=== PATIENT | male | born 1935 | race Hispanic/Latino ===

== ENCOUNTER 2021-03-28 18:03 | Emergency (ER) | payer MEDICARE ==
[~2021-03-28] VITALS: Ht 172.7 cm; Wt 78.0 kg
[2021-03-28] MEDS ORDERED: ZITHROMAX250 MG PO ×3 (19:56→20:18)
[2021-03-28] MEDS ORDERED: TESSALON PERLE100 MG PO ×3 (19:56→20:18)
[2021-03-28 20:21] VITALS: BP 200/114
== END 2021-03-28 20:21 | disposition home or self-care (01) ==
LOC: FSED 18:10
DX: R05 Cough (principal); J18.9 Pneumonia, unspecified organism; Z20.822 Contact with and (suspected) exposure to COVID-19; I10 Essential (primary) hypertension; E78.5 Hyperlipidemia, unspecified; M10.9 Gout, unspecified; G47.30 Sleep apnea, unspecified; Z95.1 Presence of aortocoronary bypass graft
CPT/HCPCS: 71045; 83518; 87400; 99283; U0002

== ENCOUNTER 2021-05-28 21:29 | Inpatient (IN) | payer MEDICARE ==
[~2021-05-28] VITALS: Ht 172.7 cm; Wt 83.9 kg
[~2021-05-28 21:29] MED LIST: TESSALON PERLE100 MG PO; ZITHROMAX250 MG PO
[2021-05-28] MEDS ORDERED: FUROSEMIDE INJ 10 MG/ML 4 ML VIAL IV ONE (23:30)
[2021-05-28] MEDS ORDERED: FUROSEMIDE INJ 10 MG/ML 4 ML VIAL ONE (23:37)
[2021-05-29] VITALS (9 sets, daily range): BP systolic 127–161; BP diastolic 73–84
[2021-05-29] MEDS ORDERED: AMLODIPINE BESYL5 MG PO (03:02)
[2021-05-29] MEDS ORDERED: LOSARTAN POTASS25 MG PO (03:03)
[2021-05-29] MEDS ORDERED: ALLOPURINOL300 MG PO (03:04)
[2021-05-29] MEDS ORDERED: SIMVASTATIN40 MG PO (03:05)
[2021-05-29] MEDS ORDERED: TERAZOSIN HCL1 MG PO (03:06)
[2021-05-29] MEDS ORDERED: ISOSORBIDE DINI20 MG PO (03:08)
[2021-05-29] MEDS ORDERED: MELATONIN3 MG PO (03:09)
[2021-05-29] MEDS ORDERED: SAW PALMETTO450 MG PO (03:11)
[2021-05-29] MEDS ORDERED: MIRALAX17 GM PO (03:13)
[2021-05-29 06:54] LABS: CREATINE KINASE MB 2.3 ng/mL (0-5.0)
[2021-05-29] MEDS ORDERED: FUROSEMIDE INJ 10 MG/ML 4 ML VIAL IV SCH (09:00)
[2021-05-29] MEDS ORDERED: ACETAMINOPHEN 325 MG TAB PO PRN (10:15)
[2021-05-29 10:29] LABS: BASOPHILS % 0.4 % (0.0-1.0); EOSINOPHILS # (AUTO) 0.1 (0.0-0.4); EOSINOPHILS % 2.5 % (0.0-6.0); HEMATOCRIT 30.5 % (38.2-49.6); HEMOGLOBIN 9.6 g/dL (14.0-18.0); LYMPHOCYTES # (AUTO) 1.4 (1.0-3.2); LYMPHOCYTES % 26.3 % (18.0-39.1); MEAN CORPUSCULAR HEMOGLOBIN 29.6 pg (28-32); MEAN CORPUSCULAR HGB CONC 31.5 g/dL (31-35); MEAN CORPUSCULAR VOLUME 94.1 fL (81-99); MONOCYTES # (AUTO) 0.6 (0.2-0.8); MONOCYTES % 12.3 % (4.4-11.3); NEUTROPHILS % 58.1 % (38.7-80.0); PLATELET COUNT 78 x10e3/uL (140-360); RED BLOOD COUNT 3.24 x10e6/uL (4.3-5.7)
[2021-05-29 10:44] LABS: ANION GAP 15.9 mmol/L (8-16); CALCIUM 8.7 mg/dL (8.4-10.2); CREATININE, SERUM 5.34 mg/dL (0.72-1.25); POTASSIUM 4.9 mmol/L (3.5-5.1)
[2021-05-29 10:58] LABS: % IRON SATURATION 11 % (15-50); IRON 24 ug/dL (65-175); TOTAL IRON BINDING CAPACITY 221 ug/dL (261-478); TRANSFERRIN 158 mg/dL (174-364)
[2021-05-29] MEDS: CEFTRIAXONE 1 GM in SODIUM CHLORIDE 0.9% 50ML 50 ML IV SCH (12:33)
[2021-05-29] MEDS ORDERED: SODIUM CHLORIDE 0.9% 50ML 50 ML ONE (13:12)
[2021-05-29] MEDS ORDERED: POLYETHYLENE GLYCOL 3350 17 GM PACK PO PRN (13:30)
[2021-05-29] MEDS: IRON SUCROSE 100 MG in SODIUM CHLORIDE 0.9% 100 ML 100 ML IV SCH (15:51)
[2021-05-29 16:14] LABS: CREATINE KINASE MB 12.7 ng/mL (0-5.0)
[2021-05-29] MEDS ORDERED: BENZONATATE 100 MG CAP PO PRN (16:30)
[2021-05-29] MEDS: TERAZOSIN HCL 1 MG CAP PO SCH (20:15)
[2021-05-29] MEDS: SIMVASTATIN 40 MG TAB PO SCH (20:15)
[2021-05-30] VITALS (8 sets, daily range): BP systolic 148–174; BP diastolic 75–107
[2021-05-30 05:01] LABS: BASOPHILS % 0.3 % (0.0-1.0); EOSINOPHILS % 0.1 % (0.0-6.0); HEMATOCRIT 31.7 % (38.2-49.6); HEMOGLOBIN 10.3 g/dL (14.0-18.0); LYMPHOCYTES # (AUTO) 1.1 (1.0-3.2); LYMPHOCYTES % 16.1 % (18.0-39.1); MEAN CORPUSCULAR HEMOGLOBIN 29.9 pg (28-32); MEAN CORPUSCULAR HGB CONC 32.5 g/dL (31-35); MEAN CORPUSCULAR VOLUME 91.9 fL (81-99); MONOCYTES # (AUTO) 0.5 (0.2-0.8); MONOCYTES % 7.5 % (4.4-11.3); NEUTROPHILS # (AUTO) 5.2 (2.1-6.9); NEUTROPHILS % 75.6 % (38.7-80.0); PLATELET COUNT 82 x10e3/uL (140-360); RED BLOOD COUNT 3.45 x10e6/uL (4.3-5.7); RED CELL DISTRIBUTION WIDTH 14.9 % (11.7-14.4)
[2021-05-30 05:32] LABS: ALBUMIN/GLOBULIN RATIO 1.5 (0.8-2.0); ANION GAP 19.5 mmol/L (8-16); CALCIUM 8.6 mg/dL (8.4-10.2); CREATININE, SERUM 5.41 mg/dL (0.72-1.25); POTASSIUM 4.5 mmol/L (3.5-5.1)
[2021-05-30 05:50] LABS: CHOL/HDL RATIO 3.6 (3.9-4.7)
[2021-05-30 06:12] LABS: THYROID STIMULATING HORMONE 2.843 uIU/mL (0.350-4.940)
[2021-05-30] MEDS: BACITRACIN ZINC 15 GM OINT TOP SCH (09:00)
[2021-05-30] MEDS ORDERED: FUROSEMIDE INJ 10 MG/ML 4 ML VIAL IV ONE (10:30)
[2021-05-30] MEDS: CEFTRIAXONE 1 GM in SODIUM CHLORIDE 0.9% 50ML 50 ML IV SCH (10:48)
[2021-05-30] MEDS: ISOSORBIDE DINITRATE 20 MG TAB PO SCH (10:48)
[2021-05-30] MEDS: CARVEDILOL 3.125 MG TAB PO SCH ×2 (10:48→17:00)
[2021-05-30] MEDS ORDERED: BUMETANIDE INJ 0.25MG/ML 4ML VIAL IV SCH ×2 (11:00→21:00)
[2021-05-30] MEDS: IRON SUCROSE 100 MG in SODIUM CHLORIDE 0.9% 100 ML 100 ML IV SCH (15:00)
[2021-05-30 16:45] LABS: CREATININE,URINE RANDOM 56.92 mg/dL (63-166)
[2021-05-30 16:47] LABS: CREATININE,URINE RANDOM 54.89 mg/dL (63-166); TOTAL PROTEIN, URINE 22.2 mg/dL (1-14)
[2021-05-30] MEDS: SIMVASTATIN 40 MG TAB PO SCH (21:20)
[2021-05-30] MEDS: BUMETANIDE 10 MG in SODIUM CHLORIDE 0.9% 100 ML 60 ML IV SCH (21:20)
[2021-05-30] MEDS: TERAZOSIN HCL 1 MG CAP PO SCH (21:20)
[2021-05-31 00:15] VITALS: BP 148/94
[2021-05-31 00:29] VITALS: BP 146/77
[2021-05-31 04:05] VITALS: BP 146/91
[2021-05-31 05:43] LABS: BASOPHILS % 0.1 % (0.0-1.0); HEMATOCRIT 32.2 % (38.2-49.6); HEMOGLOBIN 10.4 g/dL (14.0-18.0); LYMPHOCYTES # (AUTO) 1.2 (1.0-3.2); LYMPHOCYTES % 15.6 % (18.0-39.1); MEAN CORPUSCULAR HEMOGLOBIN 29.9 pg (28-32); MEAN CORPUSCULAR HGB CONC 32.3 g/dL (31-35); MEAN CORPUSCULAR VOLUME 92.5 fL (81-99); MONOCYTES # (AUTO) 0.6 (0.2-0.8); MONOCYTES % 7.6 % (4.4-11.3); NEUTROPHILS # (AUTO) 5.7 (2.1-6.9); PLATELET COUNT 96 x10e3/uL (140-360); RED BLOOD COUNT 3.48 x10e6/uL (4.3-5.7); RED CELL DISTRIBUTION WIDTH 15.2 % (11.7-14.4)
[2021-05-31 06:32] LABS: ALBUMIN 3.7 g/dL (3.5-5.0); ALBUMIN/GLOBULIN RATIO 1.3 (0.8-2.0); ANION GAP 19.4 mmol/L (8-16); CALCIUM 8.7 mg/dL (8.4-10.2); CREATININE, SERUM 5.52 mg/dL (0.72-1.25); POTASSIUM 4.4 mmol/L (3.5-5.1)
[2021-05-31] MEDS: BUMETANIDE 10 MG in SODIUM CHLORIDE 0.9% 100 ML 60 ML IV SCH ×2 (06:32→15:45)
[2021-05-31 07:39] VITALS: BP 139/79
[2021-05-31 09:00] VITALS: BP 139/79
[2021-05-31] MEDS: BACITRACIN ZINC 15 GM OINT TOP SCH ×2 (09:00→09:41)
[2021-05-31] MEDS: ISOSORBIDE DINITRATE 20 MG TAB PO SCH (09:42)
[2021-05-31] MEDS: CARVEDILOL 3.125 MG TAB PO SCH ×2 (09:42→16:52)
[2021-05-31] MEDS: CEFTRIAXONE 1 GM in SODIUM CHLORIDE 0.9% 50ML 50 ML IV SCH (10:30)
[2021-05-31] MEDS ORDERED: HEPARIN SOD (PORCINE) 1000 UNIT/ML SDV ONE ×2 (10:46→21:26)
[2021-05-31] MEDS ORDERED: LIDOCAINE HCL 1% LOCAL INJ 20 ML VIAL ONE (10:54)
[2021-05-31] MEDS ORDERED: SODIUM CHLORIDE 0.9% 1000ML 1,000 ML ONE (18:40)
[2021-05-31 20:00] VITALS: BP 141/91
[2021-05-31] MEDS: SIMVASTATIN 40 MG TAB PO SCH (21:30)
[2021-05-31] MEDS: TERAZOSIN HCL 1 MG CAP PO SCH (21:30)
[2021-06-01] VITALS (9 sets, daily range): BP systolic 117–163; BP diastolic 71–86
[2021-06-01 06:01] LABS: BASOPHILS % 0.4 % (0.0-1.0); EOSINOPHILS # (AUTO) 0.1 (0.0-0.4); EOSINOPHILS % 0.9 % (0.0-6.0); HEMATOCRIT 33.3 % (38.2-49.6); HEMOGLOBIN 10.4 g/dL (14.0-18.0); LYMPHOCYTES # (AUTO) 1.9 (1.0-3.2); LYMPHOCYTES % 25.3 % (18.0-39.1); MEAN CORPUSCULAR HEMOGLOBIN 29.6 pg (28-32); MEAN CORPUSCULAR HGB CONC 31.2 g/dL (31-35); MEAN CORPUSCULAR VOLUME 94.9 fL (81-99); MONOCYTES # (AUTO) 0.7 (0.2-0.8); MONOCYTES % 9.6 % (4.4-11.3); NEUTROPHILS # (AUTO) 4.7 (2.1-6.9); PLATELET COUNT 91 x10e3/uL (140-360); RED BLOOD COUNT 3.51 x10e6/uL (4.3-5.7); RED CELL DISTRIBUTION WIDTH 14.9 % (11.7-14.4)
[2021-06-01 06:12] LABS: ANION GAP 18.8 mmol/L (8-16); CALCIUM 8.7 mg/dL (8.4-10.2); CREATININE, SERUM 4.37 mg/dL (0.72-1.25); POTASSIUM 3.8 mmol/L (3.5-5.1)
[2021-06-01] MEDS: BUMETANIDE 10 MG in SODIUM CHLORIDE 0.9% 100 ML 60 ML IV SCH ×3 (06:52→20:00)
[2021-06-01 08:24] LABS: BAND NEUTROPHILS % (MANUAL) 2 %; LYMPHOCYTES % (MANUAL) 23 % (19-48); MONOCYTES % (MANUAL) 7 % (3.4-9.0); NEUTROPHILS % (MANUAL) 68 % (40-74)
[2021-06-01] MEDS: ISOSORBIDE DINITRATE 20 MG TAB PO SCH (09:00)
[2021-06-01] MEDS: CARVEDILOL 3.125 MG TAB PO SCH ×2 (09:00→17:56)
[2021-06-01] MEDS: BACITRACIN ZINC 15 GM OINT TOP SCH (09:00)
[2021-06-01] MEDS: CEFTRIAXONE 1 GM in SODIUM CHLORIDE 0.9% 50ML 50 ML IV SCH (10:30)
[2021-06-01] MEDS ORDERED: HEPARIN SOD (PORCINE) 1000 UNIT/ML SDV ONE (14:18)
[2021-06-01] MEDS ORDERED: SODIUM CHLORIDE 0.9% 1000ML 1,000 ML ONE (14:19)
[2021-06-01] MEDS: TERAZOSIN HCL 1 MG CAP PO SCH (21:34)
[2021-06-01] MEDS: SIMVASTATIN 40 MG TAB PO SCH (21:34)
[2021-06-02] VITALS (7 sets, daily range): BP systolic 116–164; BP diastolic 69–92
[2021-06-02] MEDS: BUMETANIDE 10 MG in SODIUM CHLORIDE 0.9% 100 ML 60 ML IV SCH ×2 (06:25→16:59)
[2021-06-02 07:06] LABS: BASOPHILS % 0.4 % (0.0-1.0); EOSINOPHILS # (AUTO) 0.1 (0.0-0.4); EOSINOPHILS % 0.7 % (0.0-6.0); HEMATOCRIT 34.7 % (38.2-49.6); HEMOGLOBIN 11.1 g/dL (14.0-18.0); LYMPHOCYTES # (AUTO) 2.1 (1.0-3.2); LYMPHOCYTES % 26.4 % (18.0-39.1); MEAN CORPUSCULAR HEMOGLOBIN 29.7 pg (28-32); MEAN CORPUSCULAR VOLUME 92.8 fL (81-99); MONOCYTES # (AUTO) 0.8 (0.2-0.8); MONOCYTES % 10.2 % (4.4-11.3); NEUTROPHILS % 61.4 % (38.7-80.0); PLATELET COUNT 94 x10e3/uL (140-360); RED BLOOD COUNT 3.74 x10e6/uL (4.3-5.7); RED CELL DISTRIBUTION WIDTH 14.8 % (11.7-14.4)
[2021-06-02 07:23] LABS: ANION GAP 16.8 mmol/L (8-16); CALCIUM 8.8 mg/dL (8.4-10.2); CREATININE, SERUM 3.86 mg/dL (0.72-1.25); MAGNESIUM 1.9 MG/DL (1.3-2.1); PHOSPHORUS 5.1 MG/DL (2.3-4.7); POTASSIUM 3.8 mmol/L (3.5-5.1)
[2021-06-02] MEDS: CARVEDILOL 3.125 MG TAB PO SCH ×2 (08:34→16:59)
[2021-06-02] MEDS: BACITRACIN ZINC 15 GM OINT TOP SCH (08:35)
[2021-06-02] MEDS: ISOSORBIDE DINITRATE 20 MG TAB PO SCH (08:35)
[2021-06-02] MEDS: CEFTRIAXONE 1 GM in SODIUM CHLORIDE 0.9% 50ML 50 ML IV SCH (09:26)
[2021-06-02] MEDS ORDERED: CLOPIDOGREL BISULFATE 75 MG TAB PO NR ×2 (11:00→16:45)
[2021-06-02] MEDS: SIMVASTATIN 40 MG TAB PO SCH (20:28)
[2021-06-02] MEDS: TERAZOSIN HCL 1 MG CAP PO SCH (20:28)
[2021-06-03] VITALS (12 sets, daily range): BP systolic 118–171; BP diastolic 64–93
[2021-06-03 05:02] LABS: BASOPHILS % 0.2 % (0.0-1.0); EOSINOPHILS # (AUTO) 0.1 (0.0-0.4); EOSINOPHILS % 1.5 % (0.0-6.0); HEMATOCRIT 33.7 % (38.2-49.6); HEMOGLOBIN 10.7 g/dL (14.0-18.0); LYMPHOCYTES # (AUTO) 0.9 (1.0-3.2); MEAN CORPUSCULAR HEMOGLOBIN 29.7 pg (28-32); MEAN CORPUSCULAR HGB CONC 31.8 g/dL (31-35); MEAN CORPUSCULAR VOLUME 93.6 fL (81-99); MONOCYTES # (AUTO) 0.8 (0.2-0.8); MONOCYTES % 11.4 % (4.4-11.3); NEUTROPHILS # (AUTO) 4.8 (2.1-6.9); NEUTROPHILS % 72.3 % (38.7-80.0); PLATELET COUNT 93 x10e3/uL (140-360); RED CELL DISTRIBUTION WIDTH 14.6 % (11.7-14.4)
[2021-06-03 05:09] LABS: INR 1.13; PROTHROMBIN TIME 14.7 seconds (11.9-14.5)
[2021-06-03 05:27] LABS: ALBUMIN 3.6 g/dL (3.5-5.0); ALBUMIN/GLOBULIN RATIO 1.2 (0.8-2.0); ANION GAP 17.6 mmol/L (8-16); CALCIUM 8.6 mg/dL (8.4-10.2); CHOL/HDL RATIO 4.4 (3.9-4.7); CREATININE, SERUM 4.62 mg/dL (0.72-1.25); POTASSIUM 3.6 mmol/L (3.5-5.1)
[2021-06-03] MEDS: BUMETANIDE 10 MG in SODIUM CHLORIDE 0.9% 100 ML 60 ML IV SCH ×3 (05:29→23:45)
[2021-06-03 05:46] LABS: THYROID STIMULATING HORMONE 2.054 uIU/mL (0.350-4.940)
[2021-06-03] MEDS: ASPIRIN 81 MG ENTERIC COATED PO SCH (08:51)
[2021-06-03] MEDS: CARVEDILOL 3.125 MG TAB PO SCH ×2 (08:51→16:03)
[2021-06-03] MEDS: ISOSORBIDE MONONITRATE 30 MG TAB CR PO SCH (08:51)
[2021-06-03] MEDS: BACITRACIN ZINC 15 GM OINT TOP SCH (10:29)
[2021-06-03] MEDS: CEFTRIAXONE 1 GM in SODIUM CHLORIDE 0.9% 50ML 50 ML IV SCH (10:29)
[2021-06-03] MEDS ORDERED: CLOPIDOGREL BISULFATE 75 MG TAB PO ONE (11:30)
[2021-06-03] MEDS ORDERED: MIDAZOLAM HCL 2 MG/2 ML VIAL ONE (17:19)
[2021-06-03] MEDS ORDERED: FENTANYL CITRATE/PF 100MCG/2 ML INJ ONE (17:19)
[2021-06-03] MEDS ORDERED: SODIUM CHLORIDE 0.9% 1000ML 2,000 ML ONE (17:20)
[2021-06-03] MEDS ORDERED: CLONIDINE HCL 0.1 MG TAB PO PRN (18:45)
[2021-06-03] MEDS: SIMVASTATIN 40 MG TAB PO SCH (21:51)
[2021-06-03] MEDS: TERAZOSIN HCL 1 MG CAP PO SCH (22:53)
[2021-06-04] VITALS (11 sets, daily range): BP systolic 101–156; BP diastolic 59–77
[2021-06-04 05:54] LABS: BASOPHILS % 0.5 % (0.0-1.0); EOSINOPHILS % 0.5 % (0.0-6.0); HEMATOCRIT 34.4 % (38.2-49.6); HEMOGLOBIN 11.2 g/dL (14.0-18.0); LYMPHOCYTES # (AUTO) 0.9 (1.0-3.2); MEAN CORPUSCULAR HEMOGLOBIN 30.3 pg (28-32); MEAN CORPUSCULAR HGB CONC 32.6 g/dL (31-35); NEUTROPHILS # (AUTO) 6.1 (2.1-6.9); NEUTROPHILS % 75.3 % (38.7-80.0); PLATELET COUNT 94 x10e3/uL (140-360); RED CELL DISTRIBUTION WIDTH 14.7 % (11.7-14.4)
[2021-06-04 06:11] LABS: ANION GAP 20.7 mmol/L (8-16); CALCIUM 8.6 mg/dL (8.4-10.2); CREATININE, SERUM 5.26 mg/dL (0.72-1.25); POTASSIUM 3.7 mmol/L (3.5-5.1)
[2021-06-04] MEDS: ASPIRIN 81 MG ENTERIC COATED PO SCH (09:18)
[2021-06-04] MEDS: CARVEDILOL 3.125 MG TAB PO SCH ×2 (09:23→19:48)
[2021-06-04] MEDS: CLOPIDOGREL BISULFATE 75 MG TAB PO SCH (09:24)
[2021-06-04] MEDS: ISOSORBIDE MONONITRATE 30 MG TAB CR PO SCH (09:24)
[2021-06-04] MEDS: BACITRACIN ZINC 15 GM OINT TOP SCH (09:33)
[2021-06-04] MEDS: ONDANSETRON HCL INJ 2MG/ML 2ML 2 MG/ML VIAL IV PRN (16:30)
[2021-06-04] MEDS ORDERED: ENOXAPARIN 30 MG/0.3 ML SYR SC SCH (17:00)
[2021-06-04] MEDS: CEFTRIAXONE 1 GM in SODIUM CHLORIDE 0.9% 50ML 50 ML IV SCH (18:04)
[2021-06-04] MEDS: SIMVASTATIN 40 MG TAB PO SCH (21:52)
[2021-06-04] MEDS: TERAZOSIN HCL 1 MG CAP PO SCH (23:17)
[2021-06-04] MEDS: MELATONIN 5 MG TABLET PO PRN (23:45)
[2021-06-05] VITALS (10 sets, daily range): BP systolic 110–166; BP diastolic 61–81
[2021-06-05 05:44] LABS: BASOPHILS # (AUTO) 0.1 (0.0-0.1); BASOPHILS % 0.5 % (0.0-1.0); EOSINOPHILS # (AUTO) 0.1 (0.0-0.4); EOSINOPHILS % 0.6 % (0.0-6.0); HEMATOCRIT 35.6 % (38.2-49.6); HEMOGLOBIN 11.7 g/dL (14.0-18.0); LYMPHOCYTES # (AUTO) 1.4 (1.0-3.2); LYMPHOCYTES % 13.9 % (18.0-39.1); MEAN CORPUSCULAR HEMOGLOBIN 29.8 pg (28-32); MEAN CORPUSCULAR HGB CONC 32.9 g/dL (31-35); MEAN CORPUSCULAR VOLUME 90.6 fL (81-99); MONOCYTES # (AUTO) 1.2 (0.2-0.8); MONOCYTES % 11.7 % (4.4-11.3); NEUTROPHILS # (AUTO) 7.4 (2.1-6.9); NEUTROPHILS % 72.2 % (38.7-80.0); PLATELET COUNT 101 x10e3/uL (140-360); RED BLOOD COUNT 3.93 x10e6/uL (4.3-5.7); RED CELL DISTRIBUTION WIDTH 14.8 % (11.7-14.4)
[2021-06-05 06:09] LABS: CREATININE, SERUM 5.03 mg/dL (0.72-1.25)
[2021-06-05] MEDS ORDERED: LIDOCAINE HCL 1% LOCAL INJ 20 ML VIAL ONE (08:19)
[2021-06-05] MEDS ORDERED: SODIUM CHLORIDE 0.9% 250ML 250 ML ONE (08:19)
[2021-06-05] MEDS ORDERED: MIDAZOLAM HCL 2 MG/2 ML VIAL ONE (08:27)
[2021-06-05] MEDS ORDERED: HEPARIN SOD (PORCINE) 1000 UNIT/ML SDV ONE (08:28)
[2021-06-05] MEDS ORDERED: FENTANYL CITRATE/PF 100MCG/2 ML INJ ONE (08:28)
[2021-06-05] MEDS ORDERED: LIDOCAINE 2% /EPINEPHRINE 20 ML SDV INJ ONE (08:28)
[2021-06-05] MEDS: ASPIRIN 81 MG ENTERIC COATED PO SCH (09:52)
[2021-06-05] MEDS: CARVEDILOL 3.125 MG TAB PO SCH ×2 (09:53→16:45)
[2021-06-05] MEDS: ISOSORBIDE MONONITRATE 30 MG TAB CR PO SCH (09:53)
[2021-06-05] MEDS: CLOPIDOGREL BISULFATE 75 MG TAB PO SCH (09:53)
[2021-06-05] MEDS: BACITRACIN ZINC 15 GM OINT TOP SCH (09:53)
[2021-06-05] MEDS: CEFTRIAXONE 1 GM in SODIUM CHLORIDE 0.9% 50ML 50 ML IV SCH (16:35)
[2021-06-05] MEDS ORDERED: SODIUM CHLORIDE 0.9% 100 ML ONE (16:38)
[2021-06-05] MEDS: MELATONIN 5 MG TABLET PO PRN (20:16)
[2021-06-05] MEDS: TERAZOSIN HCL 1 MG CAP PO SCH (20:16)
[2021-06-05] MEDS: SIMVASTATIN 40 MG TAB PO SCH (20:16)
[2021-06-06] VITALS (8 sets, daily range): BP systolic 146–166; BP diastolic 79–89
[2021-06-06] MEDS: ISOSORBIDE MONONITRATE 30 MG TAB CR PO SCH (09:00)
[2021-06-06] MEDS: CARVEDILOL 3.125 MG TAB PO SCH ×2 (09:00→16:55)
[2021-06-06] MEDS ORDERED: SODIUM CHLORIDE 0.9% 1000ML 1,000 ML ONE (09:22)
[2021-06-06] MEDS: ASPIRIN 81 MG ENTERIC COATED PO SCH (09:43)
[2021-06-06] MEDS: CLOPIDOGREL BISULFATE 75 MG TAB PO SCH (09:43)
[2021-06-06] MEDS: LOSARTAN POTASSIUM 100 MG TAB PO SCH (10:15)
[2021-06-06] MEDS ORDERED: HEPARIN SOD (PORCINE) 1000 UNIT/ML SDV ONE (13:36)
[2021-06-06] MEDS: CEFTRIAXONE 1 GM in SODIUM CHLORIDE 0.9% 50ML 50 ML IV SCH (16:55)
[2021-06-06] MEDS: ENOXAPARIN 30 MG/0.3 ML SYR SC SCH (17:02)
[2021-06-06] MEDS: MELATONIN 5 MG TABLET PO PRN (20:13)
[2021-06-06] MEDS: SIMVASTATIN 40 MG TAB PO SCH (20:13)
[2021-06-06] MEDS: TERAZOSIN HCL 1 MG CAP PO SCH (20:13)
[2021-06-07] VITALS (9 sets, daily range): BP systolic 92–155; BP diastolic 57–85
[2021-06-07 05:02] LABS: HEMATOCRIT 39.1 % (38.2-49.6); HEMOGLOBIN 12.8 g/dL (14.0-18.0); MEAN CORPUSCULAR HEMOGLOBIN 29.8 pg (28-32); MEAN CORPUSCULAR HGB CONC 32.7 g/dL (31-35); MEAN CORPUSCULAR VOLUME 91.1 fL (81-99); PLATELET COUNT 117 x10e3/uL (140-360); RED BLOOD COUNT 4.29 x10e6/uL (4.3-5.7); RED CELL DISTRIBUTION WIDTH 14.8 % (11.7-14.4)
[2021-06-07 05:03] LABS: BASOPHILS # (AUTO) 0.1 (0.0-0.1); BASOPHILS % 0.7 % (0.0-1.0); EOSINOPHILS # (AUTO) 0.1 (0.0-0.4); EOSINOPHILS % 0.6 % (0.0-6.0); LYMPHOCYTES # (AUTO) 1.7 (1.0-3.2); LYMPHOCYTES % 14.8 % (18.0-39.1); MONOCYTES # (AUTO) 1.3 (0.2-0.8); MONOCYTES % 11.5 % (4.4-11.3); NEUTROPHILS # (AUTO) 8.1 (2.1-6.9); NEUTROPHILS % 71.2 % (38.7-80.0)
[2021-06-07 05:27] LABS: ALBUMIN 4.1 g/dL (3.5-5.0); ALBUMIN/GLOBULIN RATIO 1.1 (0.8-2.0); ANION GAP 21.7 mmol/L (8-16); CALCIUM 9.7 mg/dL (8.4-10.2); CREATININE, SERUM 5.54 mg/dL (0.72-1.25); POTASSIUM 4.7 mmol/L (3.5-5.1)
[2021-06-07] MEDS: ASPIRIN 81 MG ENTERIC COATED PO SCH (08:22)
[2021-06-07] MEDS: ISOSORBIDE MONONITRATE 30 MG TAB CR PO SCH (08:23)
[2021-06-07] MEDS: CARVEDILOL 3.125 MG TAB PO SCH ×2 (08:23→17:00)
[2021-06-07] MEDS: LOSARTAN POTASSIUM 100 MG TAB PO SCH (08:23)
[2021-06-07] MEDS: CLOPIDOGREL BISULFATE 75 MG TAB PO SCH (08:23)
[2021-06-07] MEDS ORDERED: LACTULOSE SYRUP 20 GM/30 ML UDC PO ONE (12:45)
[2021-06-07] MEDS: ONDANSETRON HCL INJ 2MG/ML 2ML 2 MG/ML VIAL IV PRN ×2 (15:30→21:28)
[2021-06-07] MEDS: CEFTRIAXONE 1 GM in SODIUM CHLORIDE 0.9% 50ML 50 ML IV SCH (17:10)
[2021-06-07] MEDS: ENOXAPARIN 30 MG/0.3 ML SYR SC SCH (17:13)
[2021-06-07] MEDS: MELATONIN 5 MG TABLET PO PRN (20:13)
[2021-06-07] MEDS: SIMVASTATIN 40 MG TAB PO SCH (20:13)
[2021-06-07] MEDS: TERAZOSIN HCL 1 MG CAP PO SCH (20:13)
[2021-06-07] MEDS ORDERED: DONNATAL/LIDOCAINE/MAALOX 30 ML SUSP PO STA ×2 (23:50→23:57)
[2021-06-08] VITALS (8 sets, daily range): BP systolic 91–134; BP diastolic 54–72
[2021-06-08] MEDS: LOSARTAN POTASSIUM 100 MG TAB PO SCH (09:00)
[2021-06-08] MEDS: CARVEDILOL 3.125 MG TAB PO SCH ×2 (09:00→17:39)
[2021-06-08] MEDS: CLOPIDOGREL BISULFATE 75 MG TAB PO SCH (10:10)
[2021-06-08] MEDS: ASPIRIN 81 MG ENTERIC COATED PO SCH (10:10)
[2021-06-08] MEDS: PANTOPRAZOLE SOD 40 MG TABEC PO SCH (10:10)
[2021-06-08] MEDS: ISOSORBIDE MONONITRATE 30 MG TAB CR PO SCH (10:11)
[2021-06-08] MEDS: ONDANSETRON HCL INJ 2MG/ML 2ML 2 MG/ML VIAL IV PRN (10:29)
[2021-06-08] MEDS: FUROSEMIDE 40 MG TAB PO SCH (17:39)
[2021-06-08] MEDS: ENOXAPARIN 30 MG/0.3 ML SYR SC SCH (17:39)
[2021-06-08] MEDS: CEFTRIAXONE 1 GM in SODIUM CHLORIDE 0.9% 50ML 50 ML IV SCH (17:39)
[2021-06-08] MEDS: MEGACE 400MG/ 10ML CUP PO SCH (17:39)
[2021-06-08] MEDS: SIMVASTATIN 40 MG TAB PO SCH (20:25)
[2021-06-08] MEDS: MELATONIN 5 MG TABLET PO PRN (20:25)
[2021-06-08] MEDS: TERAZOSIN HCL 1 MG CAP PO SCH (20:25)
[2021-06-09] VITALS (7 sets, daily range): BP systolic 94–142; BP diastolic 53–78
[2021-06-09] MEDS: FUROSEMIDE 40 MG TAB PO SCH ×2 (06:09→17:25)
[2021-06-09 06:49] LABS: CALCIUM 9.1 mg/dL (8.4-10.2); CREATININE, SERUM 6.11 mg/dL (0.72-1.25)
[2021-06-09] MEDS: PANTOPRAZOLE SOD 40 MG TABEC PO SCH (08:20)
[2021-06-09] MEDS: ASPIRIN 81 MG ENTERIC COATED PO SCH (08:20)
[2021-06-09] MEDS: LOSARTAN POTASSIUM 100 MG TAB PO SCH (08:21)
[2021-06-09] MEDS: ISOSORBIDE MONONITRATE 30 MG TAB CR PO SCH (08:21)
[2021-06-09] MEDS: CARVEDILOL 3.125 MG TAB PO SCH ×2 (08:21→16:45)
[2021-06-09] MEDS: MEGACE 400MG/ 10ML CUP PO SCH (08:22)
[2021-06-09] MEDS: CLOPIDOGREL BISULFATE 75 MG TAB PO SCH (08:22)
[2021-06-09] MEDS ORDERED: PANTOPRAZOLE SO40 MG PO (12:56)
[2021-06-09] MEDS ORDERED: ASPIRIN EC81 MG PO (12:56)
[2021-06-09] MEDS ORDERED: Megestrol Acetate PO (12:56)
[2021-06-09] MEDS ORDERED: COREG3.125 MG PO (12:56)
[2021-06-09] MEDS ORDERED: ONDANSETRON ODT4 MG PO (12:56)
[2021-06-09] MEDS ORDERED: PLAVIX75 MG PO (12:56)
[2021-06-09] MEDS ORDERED: FUROSEMIDE40 MG PO (12:56)
[2021-06-09] MEDS: ENOXAPARIN 30 MG/0.3 ML SYR SC SCH (16:45)
[2021-06-09] MEDS: CEFTRIAXONE 1 GM in SODIUM CHLORIDE 0.9% 50ML 50 ML IV SCH (16:45)
== END 2021-06-09 17:30 | disposition home or self-care (01) | DRG 280 ==
LOC: FSED 21:42 → ERHOLD 23:22 → MED/SURG2 05-29 00:49 → IMCU 05-30 20:37 → MED/SURG3 06-05 15:25
PROVIDERS: ADMIT Internal Medicine; ATTEND Internal Medicine
PROC: 02HV33Z Insertion of Infusion Device into Superior Vena Cava, Percutaneous Approach (ICD-10-PCS; 2021-05-30)
PROC: 5A1D70Z Performance of Urinary Filtration, Intermittent, Less than 6 Hours Per Day (ICD-10-PCS; 2021-05-31)
PROC: 4A023N7 Measurement of Cardiac Sampling and Pressure, Left Heart, Percutaneous Approach (ICD-10-PCS; principal; 2021-06-03)
PROC: B2131ZZ Fluoroscopy of Multiple Coronary Artery Bypass Grafts using Low Osmolar Contrast (ICD-10-PCS; 2021-06-03)
PROC: B2111ZZ Fluoroscopy of Multiple Coronary Arteries using Low Osmolar Contrast (ICD-10-PCS; 2021-06-03)
PROC: B3101ZZ Fluoroscopy of Thoracic Aorta using Low Osmolar Contrast (ICD-10-PCS; 2021-06-03)
PROC: 02PY33Z Removal of Infusion Device from Great Vessel, Percutaneous Approach (ICD-10-PCS; 2021-06-05)
PROC: 02H633Z Insertion of Infusion Device into Right Atrium, Percutaneous Approach (ICD-10-PCS; 2021-06-05)
PROC: 0JH63XZ Insertion of Tunneled Vascular Access Device into Chest Subcutaneous Tissue and Fascia, Percutaneous Approach (ICD-10-PCS; 2021-06-05)
PROC: B5181ZA Fluoroscopy of Superior Vena Cava using Low Osmolar Contrast, Guidance (ICD-10-PCS; 2021-06-05)
DX: I13.2 Hypertensive heart and chronic kidney disease with heart failure and with stage 5 chronic kidney disease, or end stage renal disease (principal); N18.6 End stage renal disease; I21.4 Non-ST elevation (NSTEMI) myocardial infarction; J18.9 Pneumonia, unspecified organism; I50.23 Acute on chronic systolic (congestive) heart failure; J96.01 Acute respiratory failure with hypoxia; I25.810 Atherosclerosis of coronary artery bypass graft(s) without angina pectoris; E11.52 Type 2 diabetes mellitus with diabetic peripheral angiopathy with gangrene; I96 Gangrene, not elsewhere classified; N17.9 Acute kidney failure, unspecified; E11.22 Type 2 diabetes mellitus with diabetic chronic kidney disease; M10.9 Gout, unspecified; D69.6 Thrombocytopenia, unspecified; G47.30 Sleep apnea, unspecified; D50.9 Iron deficiency anemia, unspecified; K76.89 Other specified diseases of liver; N28.1 Cyst of kidney, acquired; K59.00 Constipation, unspecified; Z20.822 Contact with and (suspected) exposure to COVID-19; Z88.8 Allergy status to other drugs, medicaments and biological substances; Z86.73 Personal history of transient ischemic attack (TIA), and cerebral infarction without residual deficits; Z87.892 Personal history of anaphylaxis; Z82.49 Family history of ischemic heart disease and other diseases of the circulatory system; Z83.3 Family history of diabetes mellitus; Z95.1 Presence of aortocoronary bypass graft; Z95.5 Presence of coronary angioplasty implant and graft; Z79.82 Long term (current) use of aspirin
CPT/HCPCS: 36415; 36556; 36558; 71045; 74018; 74470; 75710; 76770; 76937; 77001; 80048; 80053; 80061; 82550; 82553; 82570; 82575; 83540; 83690; 83735; 83880; 84100; 84156; 84443; 84466; 84484; 85025; 85610; 86704; 86708; 87340; 90962; 93005; 93306; 93455; 93925; 93970; 94660; 96374; 97139; 99152; 99153; 99251; 99284; C1752; C1766; C1769; C1887; C1892; J0456; J0696; J1644; J1650; J1756; J1940; J2001; J2250; J2405; J3010; J7030; J7050; U0002